=== PATIENT | female | born 1995 | race African-American/Black ===

== ENCOUNTER 2017-05-01 13:08 | Emergency (ER) | payer BC, OTHER ==
[~2017-05-01] VITALS: Ht 154.9 cm; Wt 42.5 kg
[2017-05-01 13:14] VITALS: BP 121/73; PULSE 103; TEMP 37.2; O2SAT 97; Ht 154.9 cm; Wt 42.5 kg
--- NOTE | 2017-05-01 13:42 | EMERGENCY ROOM VISIT NOTE ---
History First contact with patient: 13:16 Chief Complaint: OTHER COMPLAINT Stated Complaint: REFERRED BY DOCTOR History of Present Illness The patient is a 21 year old female who presents to the Emergency Room with complaints of a low hemoglobin. The patient is a [employer] student. She had symptoms of dizziness and lightheadedness one month ago. She was seen at an urgent care and diagnosed clinically with vertigo. Her mother was concerned because the patient has a history of anemia. The patient then saw a primary care provider in the area and had laboratory testing done yesterday. She received a call that her hemoglobin was 6.6 and she needed to come here for a transfusion. The patient reports that her periods have been lasting 2-3 weeks for the past several months. She has been increasing her iron intake in the past month. She states she is asymptomatic at this time. She denies any dizziness, lightheadedness, syncope, fatigue or chest pain. The mother reports that the patient has a history of anemia diagnosed by the leather patcher. She is not sure what the patient's baseline hemoglobin is. The patient was previously prescribed iron supplementation, but stopped taking this because she states it made her feel sick. She denies any rectal bleeding. The mother denies any family history of anemia. Review of Systems A complete 10 point review of systems was reviewed with the patient with pertinent positives and negatives as per history of present illness. All else were negative. Social History Smoking Status: Never Smoker Current/Historical Medications No Active Prescriptions or Reported Meds Physical Exam Vital Signs Date Time Temp Pulse Resp B/P (MAP) Pulse Ox O2 Delivery O2 Flow Rate FiO2 17 13:14 37.2 103 18 121/73 97 Room Air Physical Exam VITALS: Vitals are noted on the nurse's note and reviewed by myself. Vital signs stable. GENERAL: This is a 21-year-old -[place] female, in no acute distress, nondiaphoretic, well-developed well-nourished. SKIN: Slight pallor noted. EARS: External auditory canals clear, tympanic membranes pearly wilkerson without erythema or effusion bilaterally. EYES: Pupils equal round and reactive to light and accommodation. Conjunctivae without injection, sclerae without icterus. MOUTH: Mucous membranes moist. NECK: Supple without nuchal rigidity. No lymphadenopathy. HEART: Mildly tachycardic. Regular rhythm without murmurs gallops or rubs. LUNGS: Clear to auscultation bilaterally without wheezes, rales or rhonchi. ABDOMEN: Positive bowel sounds x 4. Soft, nontender to palpation. NEURO: Patient was alert and oriented to person place and time. Medical Decision & Procedures Laboratory Results Medical Decision Differential diagnosis includes iron deficiency anemia, sickle cell disease, thalassemia, menorrhagia, GI bleed, among others. The patient is a 21-year-old female who presents today complaining of anemia. She was seen by an outpatient office and had laboratory testing which showed a hemoglobin of 6.6 per the patient and mother. Patient is asymptomatic and exam is unremarkable. Vital signs are stable. I explained to the patient and family that we would need to obtain labs to confirm the hemoglobin and perform a type and screen in order to give any blood products. I did explain that since the patient has not had anemia or significant in the past, she would likely need to be admitted for further workup to find the source of the anemia. Initially labs were ordered including type and cross. I was notified by nursing staff that the patient would like to sign out AGAINST MEDICAL ADVICE. The patient and mother state that they would like to go to their own hospital at home for workup of this rather than have any testing done here. I did explain the risks including hypotension, hypoperfusion, permanent disability and and the patient and mother verbalized understanding. I did urge them to go directly to the emergency department when they arrive home so as not to delay treatment. They verbalized understanding. The patient was discharged AGAINST MEDICAL ADVICE. Medication Reconcilliation Current Medication List: was personally reviewed by me Blood Pressure Screening Patient's blood pressure: Normal blood pressure Impression Primary Impression: Anemia Departure Information Dispostion Against Medical Advice Condition FAIR Prescriptions No Active Prescriptions or Reported Meds Referrals No Doctor, Assigned (PCP) Patient Instructions My [facility] Additional Instructions You have chosen to sign out against medical advice. Our recommendation is that you receive testing here. Make sure that you go directly to the emergency department when you arrive home. You may also contact the primary care provider to let them know you are coming. Go to the nearest emergency department if you develop any lightheadedness, fainting, chest pain or any other new/concerning symptoms. Problem Qualifiers Primary Impression: Anemia Anemia type: unspecified type Qualified Codes: D64.9 - Anemia, unspecified
== END 2017-05-01 13:57 | disposition left against medical advice (07) ==
LOC: C.EDB 13:13 → C.EDC 13:57
DX: D64.9 Anemia, unspecified (principal); N92.6 Irregular menstruation, unspecified